=== PATIENT | female | born 1980 | race Caucasian/White ===

== ENCOUNTER 2022-02-03 05:59 | Observation (INO) ==
--- NOTE | 2022-01-29 11:37 | Anesthesiology Consultation ---
Date of Service January 29, 2022 Assessment & Plan (1) Encounter for pre-operative examination: Chart Review Chart Review: Acceptable Risk for Surgery (pending preop Covid testing results ) and Patient NOT seen in Pre Admission Testing - Check test AM DOS Per nursing assessment 01/29/2022, patient denies any recent travel. No known Covid infection in the past 90 days. Patient is not vaccinated for Covid. No kn own Covid positive exposures or Covid related symptoms. Preop Covid testing scheduled 02/01/22= will await results History Surgery Operation Date: 02/03/22 07:30 Proposed Procedures p Abdominoplasty - Susana Anglin MD s Open Umbilical Hernia Repair Possible Mesh - Derek Melendez DO Operation Date: 02/03/22 07:30 Proposed Procedures p Open Umbilical Hernia Repair, Possible Mesh - Derek Melendez, DO Height/Weight Height: 5 ft 2 in Weight: 58.06 kg Allergies Allergy/AdvReac Type Severity Reaction Status Date / Time erythromycin base Allergy Intermediate HIVES Verified 01/29/22 08:00 Medications Home Medications Medication Instructions Recorded Confirmed Last Taken oxycodone-acetaminophen 5 mg-325 1 tab PO Q4H PRN #18 tab 01/21/22 01/21/22 Unknown mg tablet (Endocet) sertraline 100 mg tablet 100 mg PO QAM 01/29/22 01/29/22 Unknown Past Medical History Medical History Arthritis Generalized anxiety disorder History of anemia Past Family History Family History Grandmother (Paternal) Diabetes Breast cancer Stroke Other Heart disease No family history of adverse response to anesthesia Past Surgical History Surgical History Hx of colonoscopy Nausea and vomiting after administration of anesthetic agent Previous section X 2 [place] teeth removed Social History Smoking Status: Never smoker Hx Alcohol Use: Yes Alcohol type: wine alcohol intake frequency: a few times a week substance use type: does not use Lab Results Anesthesia Preop Results Results Anesthesia Widget: WBC 4.03 K/uL (4.8-10.8) L 01/26/22 Hgb 14.2 g/dL (12.0-16.0) 01/26/22 Hct 41.1 % (37-47) 01/26/22 Plt 248 K/uL (130-400) 01/26/22 Na 138 mmol/L (136-145) 01/26/22 K 4.2 mmol/L (3.5-5.1) 01/26/22 Cl 106 mmol/L (98-107) 01/26/22 CO2 27 mmol/L (21-32) 01/26/22 BUN 18 mg/dl (6-23) 01/26/22 Creat 0.82 mg/dl (0.6-1.2) 01/26/22 Glucose Level 55 mg/dl (70-99(Fasting)) L 01/26/22 PT 10.8 Seconds (9.0-12.0) 01/26/22 INR 1.0 (0.9-1.1) 01/26/22
[2022-02-03] MEDS ORDERED: ceFAZolin 2000MG 2,000 MG/15 ML SYR IV SCH (06:00)
[2022-02-03] MEDS ORDERED: LR 15ML/HR IV SCH (06:00)
--- NOTE | 2022-02-03 06:53 | History & Physical Bridge Note ---
Date of Service February 03, 2022 History & Physical Bridge Note I have examined the patient, reviewed the History & Physical and in the interval since the performance of the History & Physical I have noted the following changes of clinical significance: no changes noted
--- NOTE | 2022-02-03 07:18 | History & Physical Report ---
Date of Service February 03, 2022 Assessment & Plan (1) Umbilical hernia: Plan: She is a perfect candidate for the combined procedure. We rediscussed my role in the procedure which is repairing the hernia. Most likely because of the size of the hernia it would not require mesh although I always reserve this right for an intraoperative decision. It would most likely be an absorbable mesh if needed. We discussed postoperative care as well as limitations. I have an swered all of her questions. I will proceed today with repair of her periumbilical ventral hernia as part of her combined procedure with Dr. Anglin. (2) Diastasis recti: History of Present Illness Primary Care Provider: Kaila Duncan, 41-year-old female who is coming today for a combined procedure with Dr. Anglin. She is having an abdominal plasty as well as repair of a ventral hernia. She has had no changes to her health history since I seen her last in the office. Allergies Allergy/AdvReac Type Severity Reaction Status Date / Time erythromycin base Allergy Intermediate HIVES Verified 02/03/22 06:17 Home Medications Medication Instructions Recorded Confirmed Type oxycodone-acetaminophen 5 mg-325 1 tab PO Q4H PRN #18 tab 01/21/22 02/03/22 Rx mg tablet (Endocet) sertraline 100 mg tablet 100 mg PO QAM 01/29/22 02/03/22 History Past Med/Surg History Medical History Arthritis Generalized anxiety disorder History of anemia Surgical History Hx of colonoscopy Nausea and vomiting after administration of anesthetic agent Previous section X 2 [place] teeth removed Family History Grandmother (Paternal) Diabetes Breast cancer Stroke Other Heart disease No family history of adverse response to anesthesia Social History Smoking Status: Never smoker Second Hand Exposure: No; Hx Alcohol Use: Yes Alcohol type: wine Alcohol Intake Frequency: 2-4 x/Month Preferred Language: Fijian Fixed Income Director Required: No Beliefs That Will Affect Care: None marital status: Current Living Situation: Family current occupational status: employed current occupation: [employer] Feels Safe at Home: Yes Safety Concerns: Feels Safe At This Time Assistive Devices: Contacts Physical Exam Constitutional: WD/WN, vitals as above no acute distress and not ill appearing Eyes: PERRL, conjunctivae normal, anicteric sclerae EOM intact bilaterally ENMT: external ear and nose normal, oropharynx normal Ears: no hearing impairment Neck: trachea midline, no thyromegaly Respiratory: normal respiratory effort; no respiratory distress and does not use accessory muscles Cardiovascular: Rate/Rhythm: regular rate and regular rhythm Gastrointestinal (Abdomen): Soft. Nontender. Obvious periumbilical ventral hernia. It is reducible. She does have a generalized loss of abdominal musculature with some excess skin. This is unchanged from my prior examination Skin: no rashes, warm and dry Psychiatric: Orientation: alert, oriented x 3 and cooperative Results & Data ([facility]) Vital Signs (Past 12 Hours) Vital Signs Temp Pulse Resp BP Pulse Ox 02/03/22 06:26 36.7 C 50 L 18 105/65 100
[2022-02-03] MEDS ORDERED: ATROPINE SULFATE 0.1 MG/ML 10ML SYR IV PRN (07:19)
[2022-02-03] MEDS ORDERED: ONDANSETRON INJ 2 MG/ML 2 ML VIAL IV PRN ×2 (07:19→11:13)
[2022-02-03] MEDS ORDERED: ePHEDrine sulfate 50 MG/ML AMP IV PRN (07:19)
[2022-02-03] MEDS ORDERED: HYDROmorphone INJ 2 MG/ML SYR/VIAL IV PRN (07:19)
[2022-02-03] MEDS ORDERED: PROMETHAZINE HCL 6.25 MG in SODIUM CHLORIDE 0.9% 50 ML IV PRN (07:19)
[2022-02-03] MEDS ORDERED: BUPIVACAINE 0.5 % 5 MG/1 ML MPF 30ML VIAL ONE ×2 (07:22→07:29)
[2022-02-03] MEDS ORDERED: BUPIVACAINE 0.25% 30 ML VIAL ONE (07:22)
[2022-02-03] MEDS ORDERED: LIDOCAINE 1% LOCAL 20 ML VIAL ONE (07:22)
[2022-02-03] MEDS ORDERED: LIDOCAINE 1%/EPINEPHRINE 1:100,000 50 ML VIAL ONE (07:22)
[2022-02-03] MEDS ORDERED: EPINEPHrine INJ 1 MG/ML AMP ONE (07:22)
[2022-02-03] MEDS ORDERED: fentaNYL citrate 100 MCG/2 ML VIAL ONE (07:33)
--- NOTE | 2022-02-03 09:45 | Operative Report ---
PG Post Operative Report Pre & Post Diagnosis Operation Date: 02/03/22 07:30 Pre-Op Diagnosis: Umbilical Hernia Diastasis Recti Post-Op Diagnosis: umbilical hernia epigastric hernia diastasis recti Operation Date: 02/03/22 07:30 <No data on this case meets the specified criteria> I identified the patient and participated in the time-out.: Yes Procedure Operation Date: 02/03/22 07:30 Actual Procedures p Abdominoplasty(Not Applicable) - MD jazmin Maurer Open Umbilical and Epigastric Hernia Repair(Not Applicable) - Derek Melendez DO Operation Date: 02/03/22 07:30 <No data on this case meets the specified criteria> Surgeon Derek Melendez DO Assistant Auto Center Manager Dr. Anglin Estimated Blood Loss 5 Findings Consistent with Post-Op Diagnosis Specimens none Description of Procedure Please see Dr. Anglin's dictation for the majority of the report. The patient was already intubated and the abdominoplasty initiated when I was called into the room. The patient's umbilicus was already exposed. To keep from devascularizing it we did not take down the umbilical stalk. I elevated fascia and peritoneum between her diastases recti just below the umbilicus. I opened the peritoneum using a Metzenbaum scissor and extended this distally for several centimeters using electrocautery. I was unable to insert my finger. It was a small umbilical hernia. I was able to invert the umbilicus and primarily close the defect from the inside using 0 Ethibond in simple interrupted fashion. Once this was closed we then reclosed the peritoneum and fascia using 0 Vicryl. This would be imbricated later in the case during the abdominoplasty portion. I stayed in the room as she continued her skin flap superiorly. We encountered another small 1 cm epigastric hernia several centimeters below the xiphoid process. I was able to reduce the preperitoneal fat and again primarily close this using 0 Ethibond in simple interrupted fashion. Both hernias were small and I opted to not use mesh. Please see Dr. Anglin's dictation for the remainder of the case. I attest to the content of the Intraoperative Record and any orders documented therein. Any exceptions are noted below.
[2022-02-03] MEDS ORDERED: PROPOFOL IV EMULSION 10 MG/ML 20 ML VIAL IV ONE (10:49)
[2022-02-03] MEDS ORDERED: MoRPHine SULFATE 2 MG/ML CARP ONE (10:49)
[2022-02-03] MEDS ORDERED: ROCURONIUM BROMIDE 10 MG/ML 5 ML VIAL IV ONE (10:49)
[2022-02-03] MEDS ORDERED: LIDOCAINE 2% 2 ML VIAL/AMP(20MG/ML) INFIL ONE (10:49)
[2022-02-03] MEDS ORDERED: ONDANSETRON INJ 2 MG/ML 2 ML VIAL ONE (10:49)
--- NOTE | 2022-02-03 10:54 | Post Operative Brief Note ---
PG Immediate Post Op with CF Date of Surgery February 03, 2022 Pre & Post Diagnosis Operation Date: 02/03/22 07:30 Pre-Op Diagnosis: Umbilical Hernia Diastasis Recti Post-Op Diagnosis: Umbilical Hernia Diastasis Recti Operation Date: 02/03/22 07:30 <No data on this case meets the specified criteria> I identified the patient and participated in the time-out.: Yes Procedure Operation Date: 02/03/22 07:30 Actual Procedures p Abdominoplasty(Not Applicable) - Susana Anglin MD s Open Umbilical and Epigastric Hernia Repair; start time , start time (Not Applicable) - Derek Melendez DO Operation Date: 02/03/22 07:30 <No data on this case meets the specified criteria> Surgeon Susana Anglin MD Relations Coordinator Karine Gordillo PA-C Estimated Blood Loss 50 Findings See Below umbilical and epigastric hernias Specimens Specimen Description: No specimens Drains Giron Catheter (16 [place] 10ml balloon inserted by Lynda Linn) and Armando- Jean Drain (15 [place] ROXANA drain) Anesthesia Type General Regional Complications none
[2022-02-03] MEDS ORDERED: GLYCOPYRROLATE 0.2 MG/ML VIAL ONE (10:56)
[2022-02-03] MEDS ORDERED: NEOSTIGMINE METHYLSULFATE 1 MG/ML 10ML VIAL ONE (10:56)
--- NOTE | 2022-02-03 10:56 | Operative Report ---
PG Post Operative Report Pre & Post Diagnosis Operation Date: 02/03/22 07:30 Pre-Op Diagnosis: Umbilical Hernia Diastasis Recti Post-Op Diagnosis: Umbilical Hernia Diastasis Recti Operation Date: 02/03/22 07:30 <No data on this case meets the specified criteria> I identified the patient and participated in the time-out.: Yes Procedure Operation Date: 02/03/22 07:30 Actual Procedures p Abdominoplasty(Not Applicable) - Susana Anglin MD s Open Umbilical and Epigastric Hernia Repair; start time , start time (Not Applicable) - Derek Melendez DO Operation Date: 02/03/22 07:30 <No data on this case meets the specified criteria> Surgeon Susana Anglin MD Hotel Front Desk Agent Karine Gordillo PA-C Estimated Blood Loss 50 Findings See Below umbilical and epigastric hernias Specimens none Drains JPx2 Anesthesia Type General Regional Complications none Indications umbilical hernia, diastasis recti (5 cm) Description of Procedure Risks, benefits, and alternatives of the procedure were explained to the patient who agreed and signed consent. She was identified and marked in the preoperative holding area. She was brought to the operating room where she was positioned supine and placed under general anesthesia without incident. Giron catheter was placed. Surgical site was prepped and draped sterilely. A time-out procedure was performed. I reassessed my markings which included a lower horizontal abdominal incision just below her prior Pfannenstiel incision. Incision was marked bilaterally to the ASIS. I began by injecting 1% lidocaine with epinephrine along the planned incision. The lower abdominal incision was made using a 15-blade scalpel to incise ep idermis and superficial dermis followed by electrocautery to incise deep dermis, subcutaneous fat, Adry's fascia down to the abdominal wall. Care was taken to bevel superiorly in order to avoid enc ountering the inguinal region. Electrocautery was used to elevate the anterior abdominal skin flap ligating the perforating vessels with electrocautery. Dissection was carried up to the level of the umbilicus in the midline. At this point, a 15-blade scalpel was used to circumscribe the umbilicus. A vertical midline incision was then made from the incision to the umbilicus and divided in the midline using electrocautery. The umbilicus was then dissected out using electrocautery down to abdominal wall. The umbilical stalk appeared viable throughout the procedure. At this point, Dr. Melendez was called in to repair the umbilical hernia. Please see times in nursing notes and his operative notes for details. I then resumed undermining the abdominal wall skin flap above the umbilicus to the xiphoid process, significantly narrowing the dissection to avoid jeopardizing blood supply.About midway between the umbilicus and xiphoid, a fat containing epigastric hernia was encountered, and Dr. Melendez was asked to repair. Again, see his notes and nursing notes for details. Once the hernias had been repaired, I began repair of the rectus diastasis, which was about 5 cm in greatest diameter and extended nearly the full length of the abdomen, widest above the umbilicus. Plication from the xiphoid to the umbilicus and from the umbilicus to the pubic symphysis was performed using 0 P rolene interrupted [id number] sutures. 0 Prolene running suture was then placed to oversew the [id number] sutures and reinforced the repair. Cosmetic portion of the procedure was concluded at 09:10. At this point, the bed was flexed and the mid portion of the superior skin flap was inset above the mons pubis using 2-0 Vicryl suture. Skin flaps were marked for excision. A 15- blade scalpel was used to make these incisions and the incision was deepened through dermis, subcutaneous fat, Adry's fat using electrocautery. 15 Setswana Jose Roberto drains were placed in the wound bed and brought out through a separate stab incision in the mons pubis. The drains were sutured into place using 3-0 nylon. The umbilicus was brought out through an inverted triangular incision in the abdominal wall. This was performed using a 15-blade scalpel. Wound closure was then begun lateral to medial using 2-0 Vicryl Adry's fascia sutures, 2-0 Vicryl deep dermal sutures, 2-0 PDO running superficial Quill suture, 3-0 Monocryl running subcuticular suture. Umbilicus was brought out through the inverted triangle incision and was sutured into place using 4-0 chromic half buried horizontal mattress sutures. The umbilicus was dressed using Xeroform and the incision was dressed using Dermabond Prineo followed by dry dressings and an abdominal binder. The procedure was tolerated well. The patient was awakened and transferred to recovery in satisfactory condition. Karine Gordillo was present and scrubbed throughout the entire procedure and was instrumental in providing retraction of the pannus and assisting in simultaneous wound closure. I attest to the content of the Intraoperative Record and any orders documented therein. Any exceptions are noted below.
[2022-02-03] MEDS ORDERED: diphenhydrAMINE Capsule 25 MG CAP PO PRN (11:13)
[2022-02-03] MEDS ORDERED: LORazepam 0.5 MG TAB PO PRN (11:13)
[2022-02-03] MEDS ORDERED: MoRPHine SULFATE 4 MG/ML 1 ML CARP\\VIAL IV PRN (11:13)
[2022-02-03] MEDS ORDERED: oxyCODONE/ACETAMINOPHEN 5mg/325mg TAB PO PRN (11:13)
[2022-02-03] MEDS ORDERED: diazePAM 5 MG TABLET PO PRN (11:13)
[2022-02-03] MEDS ORDERED: diphenhydrAMINE 50 MG/ML VIAL IV PRN (11:13)
[2022-02-03] MEDS ORDERED: PROMETHAZINE HCL 12.5 MG in SODIUM CHLORIDE 0.9% 50 ML IV PRN (11:13)
[2022-02-03] MEDS ORDERED: ACETAMINOPHEN 325 MG TAB PO PRN (11:13)
[2022-02-03] MEDS ORDERED: ACETAMINOPHEN 1,000 MG/100 ML VIAL IV STA (11:14)
[2022-02-03] MEDS ORDERED: ACETAMINOPHEN 1000 MG/100 ML IV IV ONE (11:15)
[2022-02-03] MEDS: fentaNYL citrate 100 MCG/2 ML VIAL IV PRN ×7 (11:16→11:46)
--- NOTE | 2022-02-03 13:10 | Anesthesiology Progress Note ---
Date of Service February 03, 2022 Anesthesia Post Procedure Vital Signs Vital Signs: Temp Pulse Pulse Resp BP Pulse Ox 02/03/22 12:25 48 L 14 113/72 94 02/03/22 12:10 47 L 14 123/59 L 92 02/03/22 11:55 36.2 C L 56 L 17 127/81 94 02/03/22 11:45 68 16 115/85 93 02/03/22 11:35 51 L 17 109/77 98 02/03/22 11:25 60 20 121/77 95 02/03/22 11:15 68 18 129/74 95 02/03/22 11:09 36.0 C L 85 20 119/67 100 02/03/22 06:26 36.7 C 50 L 18 105/65 100 Pain Intensity Upper Abdomen: Pain Intensity: 2 Transfer of Care Handoff Completed per policy Notes Mental Status: alert / awake / arousable Patient Amnestic to Procedure: Yes Nausea / Vomiting: adequately controlled Pain: adequately controlled Airway Patency, RR, SpO2: stable & adequate BP & HR: stable & adequate Hydration State: stable & adequate Anesthetic Complications: no major complications apparent
[2022-02-03] MEDS: D5W AND 1/2NSS + 20MEQ KCL 20 MEQ/1,000 ML BAG IV SCH (14:28)
--- NOTE | 2022-02-03 15:21 | Surgery Progress Note ---
Date of Service February 03, 2022 Assessment & Plan (1) Umbilical hernia: (2) Diastasis recti: Plan: Doing well postoperatively. Pain control as needed. Valium ordered for muscle spasms as needed. Plan will be for discharge home tomorrow. Admission and Anticipated Discharge Date Admission Date: February 03, 2022 Subjective Patient seen in her room postoperatively. Does complain of some discomfort in the upper abdomen. Otherwise feeling well. Physical Exam Physical Exam: Afebrile, vital signs stable Resting comfortably, dressings intact ROXANA drains 15 cc total, serosanguineous Results & Data ([facility]) Vital Signs (Past 12 Hours) Vital Signs Temp Pulse Pulse Resp BP Pulse Ox 02/03/22 14:39 97.9 F 48 L 14 110/70 99 02/03/22 13:32 56 L 16 103/70 97 02/03/22 12:25 48 L 14 113/72 94 02/03/22 12:20 98.1 F 48 L 14 107/70 94 02/03/22 12:10 47 L 14 123/59 L 92 02/03/22 11:55 97.2 F L 56 L 17 127/81 94 02/03/22 11:45 68 16 115/85 93 02/03/22 11:35 51 L 17 109/77 98 02/03/22 11:25 60 20 121/77 95 02/03/22 11:15 68 18 129/74 95 02/03/22 11:09 96.8 F L 85 20 119/67 100 02/03/22 06:26 98.1 F 50 L 18 105/65 100 PG Care Time/CCT Total # of Minutes Spent Total Time Spent with Patient: Total time spent is greater than 50% in coordination of care (as documented) at patient's floor/unit and/or counseling patient: Coding Level of Care Code None Diagnoses Umbilical hernia K42.9 Diastasis recti M62.08
[2022-02-03] MEDS: oxyCODONE/ACETAMINOPHEN 5mg/325mg TAB PO PRN ×2 (17:19→21:05)
[2022-02-03] MEDS: ceFAZolin 2000MG 2,000 MG/15 ML SYR IV SCH (19:08)
[2022-02-03] MEDS: DOCUSATE SODIUM 100 MG CAP PO SCH (21:05)
[2022-02-04] MEDS: oxyCODONE/ACETAMINOPHEN 5mg/325mg TAB PO PRN ×3 (01:46→10:01)
[2022-02-04] MEDS: D5W AND 1/2NSS + 20MEQ KCL 20 MEQ/1,000 ML BAG IV SCH (01:46)
[2022-02-04] MEDS: ceFAZolin 2000MG 2,000 MG/15 ML SYR IV SCH (03:22)
[2022-02-04] MEDS: MoRPHine SULFATE 2 MG/ML CARP IV PRN ×2 (06:05→09:12)
[2022-02-04] MEDS ORDERED: SERTRALINE HCL 100 MG TABLET PO SCH (09:00)
[2022-02-04] MEDS ORDERED: MULTIVITAMIN TAB PO SCH (09:00)
[2022-02-04] MEDS: DOCUSATE SODIUM 100 MG CAP PO SCH (09:20)
--- NOTE | 2022-02-04 11:50 | Surgery Progress Note ---
Date of Service February 04, 2022 Assessment & Plan (1) Diastasis recti: (2) Encounter for cosmetic surgery: Plan: Patient is doing well POD#1 abdominoplasty, with hernia repair by Dr. Melendez. Plan to d/c home today, office follow-up tomorrow. Admission and Anticipated Discharge Date Admission Date: February 03, 2022 Verona Eduardo is resting comfortably in bed. She is tolerating a regular diet. She was able to void after removal of the ward catheter. Physical Exam Physical Exam: abd binder in place. drains stripped- serosang out put Results & Data ([facility]) Vital Signs (Past 12 Hours) Vital Signs Temp Pulse Pulse Resp BP Pulse Ox 02/04/22 10:11 36.7 C 47 L 59 L 16 112/67 98 02/04/22 07:17 36.7 C 47 L 16 112/67 98 02/04/22 03:23 36.8 C 59 L 16 114/62 94 PG Care Time/CCT Total # of Minutes Spent Total Time Spent with Patient: Total time spent is greater than 50% in coordination of care (as documented) at patient's floor/unit and/or counseling patient: Coding Level of Care Code None Diagnoses Diastasis recti M62.08 Encounter for cosmetic surgery Z41.1
--- NOTE | 2022-02-04 11:55 | Discharge Summary ---
Date of Service February 04, 2022 Admission HPI Per Admitting Provider 41-year-old female who is coming today for a combined procedure with Dr. Anglin. She is having an abdominal plasty as well as repair of a ventral hernia. She has had no changes to her health history since I seen her last in the office. Admission Exam Per Admitting Provider se admission H&P Principal Diagnosis diastasis recti Discharge Exam VSS, drains with serosang output, abd binder in place with no saturation of outer dressings Discharge Data Allergies Allergy/AdvReac Type Severity Reaction Status Date / Time erythromycin base Allergy Intermediate HIVES Verified 02/03/22 06:17 Procedures Performed Operation Date: 02/03/22 07:30 Actual Procedures p Abdominoplasty(Not Applicable) - Susana Anglin MD s Open Umbilical and Epigastric Hernia Repair; start time [id number], start time [id number](Not Applicable) - Derek Melendez, Operation Date: 02/03/22 07:30 <No data on this case meets the specified criteria> Ordered Studies 02/03/22 07:20 US - OR guided needle placemen Routine Hospital Course (1) Encounter for cosmetic surgery: Patient presented to [facility] with history of umbilical hernia and diastasis recti. She was taken to the OR and underwent abdominoplasty by Dr. Anglin, umbical and epigastric hernia repair by Dr. Melendez. There were no intraoperative complications. She was taken to recovery and transferred to med/surg for observation. On POD#1, she was feeling well. She was tolerating a regular diet and ambulating. She was able to void after catheter was removed. On exam, her vitals were stable. Her incisions were CDI. Her drains had appropriate output. She was discharged home with instructions to follow-up in the office in one day. (2) Diastasis recti: Total Time Total Time Spent Total Time Spent (In Minutes): 20 Discharge Plan Discharge Items Patient Disposition: Home - Self-Care Reason For Visit: Umbilical Hernia Discharge Diagnosis: s/p abdominoplasty Activity: As commented below Non-emergency contact: Surgeon Call non-emergency contact if: you have any medication questions, your pain is not controlled, you have a fever, your wound has increased redness and your wound has increased drainage Follow-up/Referrals: Karine Gordillo PA-C [Physician Liability Claims Manager] - 02/05/22 10:00 am (APPT IS WITH PHYLLIS AMAYA PA-C.) Derek Melendez DO [Surgeon] - 02/19/22 10:00 am (Please call to schedule follow up in clinic within 2 weeks) Kaila Duncan DO [Primary Care Provider] - Diet: Regular Addtl Attending Provider Instructions: ACTIVITY RECOMMENDATIONS: __Normal activities _x_No bending, lifting or straining. Do not stand or sleep straight until it feels comfortable to do so. __No driving __Driving allowed when you are off pain medications _x_Walking permitted __You should have help at home for ___ days DRESSINGS: __No dressings required _x_Keep dressings dry/in place until first office visit __Remove dressings ___ and leave dressings off __Apply ice ___ days __Remove dressings and reapply garment __Apply antibiotic ointment (Bacitracin, Neosporin, etc) to wounds 3-4 times/day for 10 days BATHING: _x_Keep dressings dry _x_Sponge bathing permitted away from surgical sites __Showering permitted _x_No swimming, hot tubs or soaking in a tub MEDICATIONS: Resume previous medications unless instructed otherwise by your surgeon. x__Do not use aspirin, Motrin, Advil or Ibuprofen as these may promote bleeding. Please use Tylenol. _x_Prescription(s) provided: Endocet and Valium have been sent to your pharmacy for post-op pain control. OTHER INSTRUCTIONS: _x Record drain output 2-3 times per day. strip drains daily SPECIAL CARE INSTRUCTIONS: * It is normal to have a mild fever after surgery. If your temperature is higher than 101.5 degrees F, please call the office at [phone]. * Constipation is a typical side effect of pain medication. An glml-fmj-[id number] stool softener will help relieve this. * Leaking around surgical drains may occur and should not cause concern. Sometimes these drains become clogged. If this happens, remove the bulb and milk the clot out of the tube, then replace the bulb. * Drainage from wounds after liposuction is normal and should be expected. Garments will become soiled. You should protect furniture and bedding. This drainage should mostly subside within 2-3 days. Leave garments in place unless instructed to remove them. * If you have unusual drainage from a wound or are concerned you have an infection or have any questions or concerns, please call the office at [phone]. FOLLOW UP VISIT: If not already scheduled, please call the office, , when you return home after surgery to schedule an appointment to be seen in __1_ days. Pending Studies at Discharge: No Stand-Alone Forms: My [facility] [employer], Smoking Cessation Medications and DC Order Prescriptions: Continued diazepam [Valium] 2 mg tablet 2 mg PO Q6H PRN (Reason: musce spasm) Qty: 14 RF: 0 oxycodone-acetaminophen [Endocet] 5-325 mg tablet 1 tab PO Q4H PRN (Reason: pain) Qty: 18 RF: 0 sertraline 100 mg Tablet 100 mg PO QAM RF: 0 Discharge Orders: Discharge Order (Routine); Ordered 02/04/22 Ordered By: Karine Low/Other Patient Handouts: Hernia Surg Traditional Tx Admission Data Admit Date/Time: 02/03/22 11:13 Attending Provider: Susana Anglin Admit Provider: Susana Anglin Primary Care Provider: Kaila Duncan Other Interventions: Discharge Summary Assessment (RN) Last Done: 02/04/22 10:11 Coding Level of Care Code 88302 OBS Care - Discharge Diagnoses Encounter for cosmetic surgery Z41.1 Diastasis recti M62.08
== END 2022-02-04 10:48 | disposition home or self-care (01) ==
LOC: 3N 05:59 → ASU 05:59